=== PATIENT | female | born 1940 | race Two or more races ===

== ENCOUNTER 2018-05-27 11:45 | Inpatient (IN) | payer OTHER ==
[~2018-05-27] VITALS: Ht 162.6 cm; Wt 100.2 kg
[2018-05-29] MEDS ORDERED: ENALAPRIL MALEA20 MG (12:25)
[2018-05-29] MEDS ORDERED: GABAPENTIN400 MG PO (12:44)
[2018-06-03] MEDS ORDERED: INTEGRA PLUS C1 EACH PO (07:33)
[2018-06-03] MEDS ORDERED: OXYC1TAB9 PO (07:33)
[2018-06-03] MEDS ORDERED: XARELTO10 MG PO (07:33)
== END 2018-06-03 18:24 | disposition home or self-care (01) | DRG 470 ==
LOC: O/R 06-01 06:11 → SURG 06-01 06:11 → SURH 06-01 11:00 → SURG 06-01 15:17
PROVIDERS: ADMIT Orthopaedic Surgery Sports Medicine
PROC: 0SRC0J9 Replacement of Right Knee Joint with Synthetic Substitute, Cemented, Open Approach (ICD-10-PCS; principal; 2018-06-01 11:00)
DX: M17.11 Unilateral primary osteoarthritis, right knee (principal); I10 Essential (primary) hypertension; K21.9 Gastro-esophageal reflux disease without esophagitis